=== PATIENT | male | born 1940 | race Caucasian/White ===

== ENCOUNTER → 2016-06-30 | Outpatient (CLI) | payer MEDICARE, BC | LOC: COL.PUL 09:33 | DX: R06.02 Shortness of breath (principal); R94.2 Abnormal results of pulmonary function studies ==

== ENCOUNTER → 2016-07-01 | Outpatient (REF) ==
[2016-07-01 16:03] LABS: THYROID STIMULATING HORMONE 1.29 uIU/mL (0.465-4.680)
[2016-07-01 17:48] LABS: PSA-TOTAL 0.12 ng/mL (0-4)
== END ==
LOC: ZLAB.WCH 14:43
PROVIDERS: Internal Medicine
DX: Z01.89 Encounter for other specified special examinations (principal)
CPT/HCPCS: G0103

== ENCOUNTER 2017-08-11 13:10 | Day surgery (SDC) | payer MEDICARE, BC ==
[~2017-08-11] VITALS: Ht 185.4 cm; Wt 84.6 kg
[2017-08-11] MEDS ORDERED: ASPIRIN 32325 MG/TAB PO (14:04)
[2017-08-11] MEDS ORDERED: NORVASC 5MG5 MG/TAB PO (14:04)
[2017-08-11] MEDS ORDERED: PLAVIX 75MG TAB75 MG PO (14:05)
[2017-08-11] MEDS ORDERED: PROTONIX 40MG T40 MG PO (14:06)
[2017-08-11] MEDS ORDERED: XYZAL5 MG PO (14:07)
[2017-08-11] MEDS ORDERED: MEVACOR40 MG PO (14:07)
[2017-08-11] MEDS ORDERED: NITROSTAT0.4 MG/TAB SL (14:08)
[2017-08-11] MEDS ORDERED: THEO-DUR 3300 MG/TAB PO (14:09)
[2017-08-11] MEDS ORDERED: PROAIR HFA0.09 MG/AC IH (14:09)
[2017-08-11 14:11] VITALS: BP 142/88; PULSE 88; TEMP 97.9
[2017-08-11 15:16] VITALS: BP 119/64; PULSE 80; TEMP 97
[2017-08-11 15:30] VITALS: BP 127/78; PULSE 70
[2017-08-11 15:45] VITALS: BP 121/67; PULSE 72
== END 2017-08-11 16:00 | disposition home or self-care (01) ==
LOC: SDCO 13:10
DX: D12.2 Benign neoplasm of ascending colon (principal); K57.30 Diverticulosis of large intestine without perforation or abscess without bleeding; K21.9 Gastro-esophageal reflux disease without esophagitis; D50.0 Iron deficiency anemia secondary to blood loss (chronic); K92.1 Melena; Z86.010 Personal history of colon polyps; K22.70 Barrett's esophagus without dysplasia; E78.00 Pure hypercholesterolemia, unspecified; Z95.1 Presence of aortocoronary bypass graft; Z86.73 Personal history of transient ischemic attack (TIA), and cerebral infarction without residual deficits; J44.9 Chronic obstructive pulmonary disease, unspecified; Z87.891 Personal history of nicotine dependence; I10 Essential (primary) hypertension; I25.10 Atherosclerotic heart disease of native coronary artery without angina pectoris
CPT/HCPCS: J2704; J7030

== ENCOUNTER → 2018-08-18 | Outpatient (REF) ==
[~2018-08-18] MED LIST: ASPIRIN 32325 MG/TAB PO; MEVACOR40 MG PO; NITROSTAT0.4 MG/TAB SL; NORVASC 5MG5 MG/TAB PO; PLAVIX 75MG TAB75 MG PO; PROAIR HFA0.09 MG/AC IH; PROTONIX 40MG T40 MG PO; THEO-DUR 3300 MG/TAB PO; XYZAL5 MG PO
[2018-08-18 17:30] LABS: THYROID STIMULATING HORMONE 0.827 uIU/mL (0.465-4.680)
[2018-08-18 17:55] LABS: PSA-TOTAL < 0.10 ng/mL (0-4)
== END ==
LOC: ZLAB.WCH 16:00
PROVIDERS: Internal Medicine
DX: Z01.89 Encounter for other specified special examinations (principal)
CPT/HCPCS: G0103

== ENCOUNTER → 2019-03-21 | Outpatient (CLI) | payer MEDICARE, BC | LOC: COL.PUL 10:52 | DX: R06.00 Dyspnea, unspecified (principal); Z87.891 Personal history of nicotine dependence ==